=== PATIENT | female | born 1975 | race Caucasian/White ===

== ENCOUNTER 2017-09-27 13:06 | Emergency (ER) | payer OTHER ==
[2017-09-27] MEDS: HYDROCODONE/APAP (10/325) TAB PO (14:10)
== END 2017-09-27 14:37 | disposition home or self-care (01) ==
LOC: FTE 13:06
DX: M54.9 Dorsalgia, unspecified (principal); E11.9 Type 2 diabetes mellitus without complications; Z79.82 Long term (current) use of aspirin; Z79.84 Long term (current) use of oral hypoglycemic drugs
CPT/HCPCS: 99283; Z7610